=== PATIENT | female | born 1950 | race Caucasian/White ===

== ENCOUNTER 2016-10-18 10:58 | Observation (INO) | payer MEDICAID ==
[~2016-10-18] VITALS: Ht 152.4 cm; Wt 128.0 kg
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
--- NOTE | ~2016-10-18 | DS ---
PATIENT'S NAME: JORGE AGUILAR [facility] AGE: 66 Y [address] ROOM: [id number] [place], [place] [address] LOCATION: [facility] ADMIT DATE: 10/18/2016 Discharge Summary DISCHARGE DATE: 10/21/2016 FAMILY PHYSICIAN: Bam Daly MD ATTENDING PHYSICIAN: Mark Anthony Connolly PRINCIPAL DIAGNOSES: 1. Left knee effusion. 2. Left patellar superficial wound. 3. Left knee pain secondary to above. 4. Diabetes mellitus type 2. 5. Obesity. 6. Multiple drug allergy by history. HOSPITAL COURSE: Please reference any of admitting data to the history and physical as dictated by Dr. Connolly. Briefly, a 66-year-old female, who has had multiple surgeries on her left knee and multiple recurrent infections with both MRSA and MSSA, returned to her primary care doctor's office with a worsening left knee wound, was sent to the hospital to be admitted under the hospitalist for further evaluation and treatment. Of important note, the patient has multiple drug allergies. Initial lab work did not show any concerns for sepsis. The patient clinically was stable. An orthopedic consultation was obtained for further evaluation. A left knee x-ray did show soft tissue swelling at the knee with moderate- sized joint effusion. There were initial concerns for cellulitis. There was also initial concern for periprosthetic joint infection. Orthopedist performed the consultation and had strong suspicion of a deep periprosthetic infection, but in light of the fact that she has been previously cared for by Dr. Jovan Baires and she demonstrated no evidence of septicemia, it was elected for consultation with Dr. Baires. After communication with Dr. Baires, he felt that the patient would be best under the care of her primary orthopedist, Dr. Molina in [place]. She was observed overnight and did not develop any fevers or indicate any signs of septicemia. We treated her pain with oral analgesia and provided inpatient wound consultation with Trudy Pavon APRN, who placed a Mepilex dressing. A swab was sent off the knee wound to lab. That morning we immediately phoned Dr. Molina's office and whom I spoke with his physician's web press operator assistant, and Dr. Molina was out of the country until the following Monday. Recommendations were made by phone for aspiration and drainage of the knee. This was arranged with Interventional Radiology and specifically stated to aspirate away from the area of concerned cellulitis. Prior to aspiration, we reviewed history with the patient and with her primary care provider, and local orthopedist, and the patient had not reported to be on any antibiotic PATIENT'S NAME: JORGE AGUILAR [facility] AGE: 66 Y [address] ROOM: [address] [address] LOCATION: [facility] ADMIT DATE: 10/18/2016 Discharge Summary DISCHARGE DATE: 10/21/2016 FAMILY PHYSICIAN: Bam Daly MD ATTENDING PHYSICIAN: Mark Anthony Connolly. Last hospital admission obtained from [facility] in July. Last knee aspiration from June 30 showed Synovasure negative. So we went ahead and performed the aspirate and then started her empirically on vancomycin that she has tolerated in the past for MRSA coverage because of her history. We observed the culture results from the aspirate to be negative for 48 hours. She did have a positive superficial swab culture showing MSSA. Pain had improved and the patient was given physical therapy and mobilized safely. Because of her long drug allergy history, it was elected that the patient be provided linezolid for adequate coverage of the superficial infection. When presented the patient with this information, she reported that she recently had difficulties obtaining linezolid through insurance with Dr. Bam Daly and further forthcoming information revealed that the patient reports taking 3 days of this medicine while seeing Infectious Disease last week, none of which was reported prior to. We did call her local pharmacy who verified that the patient did fill 3 days of linezolid therapy. We also called Infectious Disease physician, Dr. Alber Williamson, who had seen her last week in the clinic, who recommended for the patient to be off antibiotics completely. Certainly concerns of false- negative knee aspirate, however, in light of no definitive signs or symptoms of septicemia, elected to stop all antibiotics. It was recommended that the patient be referred to Immunology which of important note has been referred to in the past. She also should be referred to her primary orthopedist, Dr. Molina. Local wound care with Mepilex dressing and close observation of the wound. If cellulitis truly occurs, or worsening fevers or drainage from the knee, Dr. Williamson recommends dalbavancin or oritavancin intravenous weekly as an outpatient. But for now with the improved wound despite positive swab culture and negative knee aspirate, we recommend Mepilex topically only and surveillance as an outpatient. Her diabetes management was continued with sliding scale insulin and long- acting insulin with observation of blood glucose monitoring before each meal and at bedtime. She had no complications with this. Her new hemoglobin A1c on 10/18 was 9.7, equivalent to a mean glucose of 231.7. She was given diet and education on the importance of better control. She will need further surveillance as an outpatient. DVT prophylaxis was maintained with pneumatic compression devices as well as Lovenox therapy. She was mobilized often and given physical therapy for rehab services. PERTINENT LABORATORY FINDINGS: CBC on 10/18 showed a white blood cell count of 10.7, hemoglobin of 11.9, hematocrit of 37.2, and a platelet count of 333. A chemistry panel was unrevealing. She had a normal creatinine of 0.8, sodium of 141, a potassium 4.0, chloride 109, CO2 25, calcium 8.3. Liver functions were within normal limits. Her sedimentation rate was 41 and CRP was 1.40. PATIENT'S NAME: JORGE AGUILAR [facility] AGE: 66 Y [address] ROOM: [address] [address] LOCATION: [facility] ADMIT DATE: 10/18/2016 Discharge Summary DISCHARGE DATE: 10/21/2016 FAMILY PHYSICIAN: Bam Daly MD ATTENDING PHYSICIAN: Mark Anthony Connolly Procalcitonin was less than 0.05 and a hemoglobin A1c of 9.7. MICROBIOLOGY DATA: Her synovial fluid showed no growth at 2 days. Her swab of her left knee of the superficial wound showed MSSA, heavy growth. Her blood cultures were no growth to date on day of discharge. RADIOLOGIC IMAGING: A left x-ray showed moderate effusion with soft tissue swelling. CONSULTATIONS: 1. Orthopedics, Dante Wright M.D. 2. Trudy Pavon, LINOLEUM PRINTER, wound. It should be of important note that telephone conversations occurred with Dr. Molina's PA, Tristan and Jovan Baires DO, while collaborating and coordinating care of this patient. DISCHARGE MEDICATIONS: 1. Lantus 22 units subcutaneous every night at bedtime. 2. Simvastatin 80 mg p.o. every night at bedtime. 3. Benadryl 50 mg p.o. every night at bedtime as needed for itching. 4. Zyrtec 10 mg p.o. every night at bedtime as needed for allergies. 5. Percocet 10/325 mg 1-2 tablets p.o. every 6 hours as needed. A prescription was written for 14 tablets. 6. Metformin 1000 mg p.o. twice daily. 7. Lasix 40 mg p.o. 5 days a week. 8. Tradjenta 5 mg p.o. every day. 9. Tanzeum or albiglutide 50 mg intramuscular every 7 days. 10. Albuterol 1 puff inhalation every 4 hours as needed for shortness of breath. 11. Mometasone one application topically every day as needed to area of rash. 12. Albuterol sulfate 1 vial inhalation 4 times daily as needed for shortness of breath. 13. Triamcinolone 0.1% cream topically twice daily to areas affected. DISCHARGE INSTRUCTIONS: The patient was educated extensively on discharge instructions to include: 1. Diet: To be ADA. 2. Activity: As tolerated. 3. Followup appointments to include:. a. Dr. Juan Manuel Molina, November 04 as previously scheduled. This was called and confirmed by our nursing staff. b. Dr. Bam Daly in 2 weeks. c. Trudy Pavon APRN in 1 week. PATIENT'S NAME: JORGE AGUILAR [facility] AGE: 66 Y [address] ROOM: [address] [address] LOCATION: [facility] ADMIT DATE: 10/18/2016 Discharge Summary DISCHARGE DATE: 10/21/2016 FAMILY PHYSICIAN: Bam Daly MD ATTENDING PHYSICIAN: Mark Anthony Connolly We recommend Immunology referral as per Infectious Disease recommendations. As previously stated in discussion with Dr. Williamson by phone, the patient had seen Dr. Williamson in the outpatient setting, approximately a week ago. Because there was no evidence of septicemia, aspirate was negative, and recurrence of superficial left patellar wound, it was recommended that the patient stop all antibiotics and locally treat with Wound Care and Mepilex dressing. If fever, worsening pain, or swelling, redness or erythema, or signs or symptoms associated with soft tissue or cellulitic infection, then the aforementioned antibiotics to include, dalbavancin or oritavancin IV weekly as an outpatient is recommended. Because of her past history of allergies, we would try to avoid use of vancomycin. It is important that the patient follows up with Dr. Molina at her previously scheduled appointment. She states complete understanding of the above line of management and plan with all questions answered with statements of satisfaction. Total time arranging discharge and directing coordination of care was greater than 30 minutes. Thank you for allowing us to participate in the care of this patient while at [facility]. SUSIE I DALY JAMES APRN FOR MD [facility] [place]/kole /[id number] CC: MD Trudy Pemebrton APRN T [place], MD John M Wright, MD d: t: 10/22/16 1633, DISCHARGE SUMMARY
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
[~2016-10-18 10:58] MED LIST: BACTROBAN 2% OI22 GM; BENADRYL25 MG PO; COLACE100 MG PO; CYMBALTA60 MG PO; ELOCON15 GM TOP; FEOSOL325 MG PO; FLORASTOR250 MG PO; GLUCOPHAGE500 MG PO; INVANZ 1 G1 GM/100 M IV; LANTUS SOL100 UNIT/1 SUB-Q; LASIX40 MG PO; PAXIL40 M1 PO; PERCOCET 10-321 EACH PO; PERCOCET 5-3251 EACH PO; PROVENTIL OR V6.7 GM INH; SINGULAIR10 MG PO; TANZEUM50 MG/0.5 IM; TRADJENTA5 MG PO; ZOCOR80 MG PO; ZYRTEC10 MG PO
[2016-10-18] MEDS ORDERED: ALBUTEROL2.5 MG/31 INH (12:04)
[2016-10-18] MEDS ORDERED: TRIACET 0.1% 8080 GM TOP (12:05)
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
--- NOTE | 2016-10-18 13:30 | NUR ---
pt refused pneumatics. states they make her itch too much.
[2016-10-18 13:56] LABS: BASOPHIL # 0.1 K/uL (0.0-0.2); BASOPHIL % 0.5 %; EOSINOPHIL # 0.3 K/uL (0.0-0.5); EOSINOPHIL % 2.5 %; HEMATOCRIT 37.2 % (33.0-46.0); HEMOGLOBIN 11.9 g/dL (10.0-15.0); IMMATURE GRANULOCYTE % 0.4 %; LYMPHOCYTE # 2.2 K/uL (0.8-4.0); LYMPHOCYTE % 20.7 %; MCH 25.5 pg (27.0-34.0); MCV 79.8 fl (83.0-98.0); MONOCYTE # 0.7 K/uL (0.0-1.0); MONOCYTE % 6.6 %; NEUTROPHIL # (ANC) 7.4 K/uL (1.8-7.8); NEUTROPHIL % 69.3 %; NRBC % 0 /100WBC (0-0.00); PLATELET COUNT 333 K/uL (150-450); RBC 4.66 M/uL (3.50-5.50); RDW-CV 15.8 % (11.9-14.6); WBC 10.7 K/uL (4.0-11.0)
[2016-10-18 14:21] LABS: ALBUMIN 3.2 gm/dL (3.5-5.0); ANION GAP 10.1 (10.0-19.0); CALCIUM 8.7 mg/dL (8.5-10.5); CREATININE 0.8 mg/dL (0.5-1.1); POTASSIUM 4.1 mMol/L (3.7-5.1); TOTAL BILIRUBIN 0.3 mg/dL (0.0-1.5); TOTAL PROTEIN 7.5 g/dL (6.0-8.4)
--- NOTE | 2016-10-19 04:51 | NUR ---
VSS, pt diabetic. on sliding scale for insulin. open wound on left knee. covered by 4x4's and teagaderm. in contact isolation for MRSA. ACHS accuchecks. pt likes ice to her knee. no pain meds given this shift.
--- NOTE | 2016-10-19 13:08 | NUR ---
914 Phone call from Marika on the OB floor stating Afshin Valle APRN was on the floor and needed to talk to me regarding patient. Arrived to the floor at 09 and Afshin states he would like to transfer patient to [place], but was waiting to see if the doctor is available to accept her. He placed multiple phone calls and the physician [place]. Per Afshin patient will stay here and be on IV antibiotics until we can get her to [place]. will see patient and possibly do an aspiration on the knee. I met with patient and introduced myself to her. I explained my role with the CM department. She appears to be in good spirits at this time. She does not have any immediate needs at this time. Will know more about her discharge needs once we know if she will be going to [place] next week or not. CM department will continue to follow and offer assistance with discharge planning.
--- NOTE | 2016-10-19 13:15 | NUR ---
1210: To Radiology per bed by 2 radiology personel for aspiration of Lt) knee (ordered by Afshin Valle APRN). 1315: Returned from radiology at this time. Ice pack re-applied to Lt) knee & Iggy RN took orders off, incl.IV Vancomycin order sent to pharmacy. Patient states knee still numb/no pain from prior injection to aspiration. Reminded to call if needs pain med.later. Ordering her diabetic lunch now & will bring her Novalog insulin (per sliding scale for 207 ac accucheck), when meal set in front of her. Patient in good spirits. 1340: Pura-KEVIN started IV Lt) wrist for the IV-Vancomycin.
--- NOTE | 2016-10-20 02:05 | NUR ---
Significant Event: PATIENT ALERT AND ORIENTED X 3. VSS. TAKING PO AND VOIDING WITHOUT DIFFICULTY. UP AD ALEXA IN ROOM. MEPILEX DRESSING TO LEFT KNEE C/D/I - WAS CHANGED UPON ARRIVAL D/T FALLING OFF. BANDAID ALSO C/D/I TO LEFT KNEE. IV PATENT IN LEFT WRIST. ACCUCHECKS AC AND HS. PLEASANT AND COOPERTIVE WTTH CARES. Follow up: POSSIBLE TRANSFER TO [facility] VS GOING HOME
[2016-10-20 06:53] LABS: ALBUMIN 2.9 gm/dL (3.5-5.0); CALCIUM 8.3 mg/dL (8.5-10.5); CREATININE 0.8 mg/dL (0.5-1.1); TOTAL BILIRUBIN 0.3 mg/dL (0.0-1.5); TOTAL PROTEIN 6.8 g/dL (6.0-8.4)
--- NOTE | 2016-10-20 14:17 | NUR ---
Significant Event: Pt is a/o. Cooperative with cares. Is independent in her room. [facility] WNL. Mepilex dressing to knee c/d/i. IV vanco q 12 hr. Awaiting culture results to know if she is going home on PO ATB or transferring to [place]. Zofran po for nausea after lunch. Follow up:
--- NOTE | 2016-10-20 15:15 | NUR ---
Received a call from Jing Carvajal in UR. Patient was denied inpatient stay so is OBS. She reports there is no certain time frame for dismissal on an OBS but patient could possible go today or tomorrow. 1600 Introduced self/role to patient. She reports her only need would be if she had an IV abx at home and would need [facility] lined up. Denied any need for DME or other resources. Explained OBS status to patient. Added my name to her marker board. Spoke to Dr. Baer, she thought the abx would all be swithced to PO.
--- NOTE | 2016-10-20 16:48 | NUR ---
Significant Event: Pt showered and returned to bed, meplixe to knee CL/D/I, amb with PT in halls, Percocet at 1542 Follow up: Awaiting cultrues, home (PO ANTB) vs [place] (IV ANTB)
[2016-10-21 01:07] LABS: CREATININE 0.8 mg/dL (0.5-1.1)
--- NOTE | 2016-10-21 03:09 | NUR ---
Significant Event: PATIENT ALERT AND ORIENTED X 3. VSS. TAKING PO AND VOIDING WITHOUT DIFFICULTY. UP AD ALEXA IN ROOM. SALINE LOCK PATENT IN RIGHT HAND. MEPILEX DRESSING TO LEFT KNEE AND BANDAID INTACT. PAIN WELL CONTROLLED WITH PERCOCET LAST AT 2235. ICE TO LEFT KNEE. REMAINS IN CONTACT ISOLATION FOR MRSA. PLEASANT AND COOPERTIVE WITH CARES. Follow up:
--- NOTE | 2016-10-21 12:15 | NUR ---
Spoke to Afshin Daniels, patient going home on oral meds - no needs from me.
--- NOTE | 2016-10-21 16:06 | NUR ---
Discharge instructions reviewed with patient. Discussed all medications, when to call the doctor, s/s infection, care of dressing on l) knee, need to keep all follow up appointments. etc. Encouraged to call md with any questions after discharge. Shower guards sent home with patient. All belongings with patient. To front door per w/c.
== END 2016-10-21 15:48 | disposition disaster alternative care site (69) ==
LOC: GOBS 10:58 → G3N 10:58
PROVIDERS: Nurse Practitioner Family; ADMIT Internal Medicine
PROC: 0S9D3ZZ Drainage of Left Knee Joint, Percutaneous Approach (ICD-10-PCS; principal; 2016-10-19)
DX: M25.462 Effusion, left knee (principal); L03.116 Cellulitis of left lower limb; B95.62 Methicillin resistant Staphylococcus aureus infection as the cause of diseases classified elsewhere; E78.00 Pure hypercholesterolemia, unspecified; J45.909 Unspecified asthma, uncomplicated; E11.65 Type 2 diabetes mellitus with hyperglycemia; F32.9 Major depressive disorder, single episode, unspecified; I10 Essential (primary) hypertension; G25.0 Essential tremor; E66.01 Morbid (severe) obesity due to excess calories; Z68.43 Body mass index [BMI] 50.0-59.9, adult; Z88.0 Allergy status to penicillin; Z88.1 Allergy status to other antibiotic agents; Z88.8 Allergy status to other drugs, medicaments and biological substances; Z79.4 Long term (current) use of insulin; Z79.899 Other long term (current) drug therapy; Z98.1 Arthrodesis status; Z90.49 Acquired absence of other specified parts of digestive tract; Z90.710 Acquired absence of both cervix and uterus; Z98.890 Other specified postprocedural states
CPT/HCPCS: G0378; J1650; J2001; J3370; J7040; J7050; Q0162